=== PATIENT | male | born 1955 | race Caucasian/White ===

== ENCOUNTER → 2017-06-20 | Outpatient (CLI) | payer BC ==
[~2017-06-20] MED LIST: ALP25 PO; ALPR-698 PO; CAL500 PO; CALC-547 PO; DIG25 PO; DILT240C PO; DILT360C49 PO; DOC100 PO; ENOX80DI SQ; ENOX80DI8 SQ; IBUP600T22 PO; LEV112 PO; LEV125 PO; LEVO750T25 PO; LISI-347; LISI-351 PO; LISI-362 PO; METH5TAB87 PO; METXL50 PO; MULT1CAP59 PO; OLME40TA17 PO; OMEP-218 PO; ONDA4TAB PO; OXYC-865 PO; PER PO; PRED20TA6 PO; [UNRECOGNIZED DRUG - CODE]; [UNRECOGNIZED DRUG - OTHER] PO
== END ==
LOC: LAB 08:09
PROVIDERS: ATTEND Family Medicine
DX: E87.6 Hypokalemia (principal); E03.4 Atrophy of thyroid (acquired)
CPT/HCPCS: 36415; 82310; 82374; 82435; 82565; 82947; 84132; 84295; 84443; 84520

== ENCOUNTER → 2017-12-27 | Outpatient (CLI) | payer BC ==
[2017-12-27 08:33] LABS: LDL CHOLESTEROL 71 mg/dl
== END ==
LOC: LAB 07:29
PROVIDERS: ATTEND Family Medicine
DX: Z00.00 Encounter for general adult medical examination without abnormal findings (principal); E87.6 Hypokalemia; E03.4 Atrophy of thyroid (acquired)
CPT/HCPCS: 36415; 82310; 82374; 82435; 82465; 82565; 82947; 83718; 84132; 84295; 84443; 84478; 84520

== ENCOUNTER → 2019-01-19 | Outpatient (CLI) | payer BC ==
--- NOTE | 2019-01-19 14:29 | EKG ---
FACILITY: [facility] PATIENT NAME: VALORIE BERMUDEZ : [id number] MR: [id number]: [id number] EXAM DATE: ORDERING PHYSICIAN: LALA MCCARTY TECHNOLOGIST: BANDAR Test Reason : PREOP-CHOLONOSCOPY Blood Pressure : / mmHG Vent. Rate : 060 BPM Atrial Rate : 060 BPM P-R Int : 168 ms QRS Dur : 092 ms QT Int : 410 ms P-R-T Axes : 069 035 064 degrees QTc Int : 410 ms Normal sinus rhythm Normal ECG When compared with ECG of 17-FEB-2013 05:58, No significant change was found Confirmed by Chance Kan ([id number]) on 01/20/2019 7:15:48 AM Referred By: LUL Confirmed By:Chance Love
[2019-01-19 14:32] LABS: PLATELET COUNT, AUTOMATED 209 K/uL (150-450)
== END ==
LOC: LAB 14:05
PROVIDERS: ATTEND Surgery
DX: Z01.818 Encounter for other preprocedural examination (principal)
CPT/HCPCS: 36415; 85025; 93005